=== PATIENT | male | born 1985 | race Caucasian/White ===

== ENCOUNTER 2017-02-04 15:15 | Emergency (ER) | payer OTHER ==
[~2017-02-04] VITALS: Ht 167.6 cm; Wt 60.0 kg
[2017-02-04 15:22] VITALS: BP 133/91; PULSE 70; RESP 18; TEMP 98.5; O2SAT 99
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
[2017-02-04] MEDS ORDERED: KETOROLAC TROMETHAMINE 30 MG/ML (IVP) VIAL IV PUSH ONE (15:45)
[2017-02-04] MEDS ORDERED: methylPREDNISolone SOD SUCC 125 MG/2 ML VIAL IVP ONE (15:45)
[2017-02-04] MEDS ORDERED: cefTRIAXone INJ 1,000 MG in SODIUM CHLORIDE 0.9% INJ 100 ML IV ONE (15:45)
[2017-02-04] MEDS ORDERED: SODIUM CHLORIDE 0.9% FLUSH 10 ML FLUSH IVF PRN (15:45)
[2017-02-04] MEDS ORDERED: TETANUS/DIPHTHERIA TOXOID ADULT 0.5 ML VIAL IM ONE (15:45)
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
[2017-02-04] MEDS ORDERED: SODIUM CHLOR 0.9% 1000 ML INJ 1,000 ML IV ONE ×2 (16:15→17:15)
[2017-02-04] MEDS ORDERED: BACI500O9 TOPICAL ×2 (16:47→17:13)
[2017-02-04] MEDS ORDERED: IBUP800T23 PO ×2 (16:47→17:13)
== END 2017-02-04 17:28 | disposition home or self-care (01) ==
LOC: NEPC 15:15
DX: T31.20 Burns involving 20-29% of body surface with 0% to 9% third degree burns (principal); T23.162A Burn of first degree of back of left hand, initial encounter; T23.161A Burn of first degree of back of right hand, initial encounter; T22.112A Burn of first degree of left forearm, initial encounter; T22.111A Burn of first degree of right forearm, initial encounter; T22.132A Burn of first degree of left upper arm, initial encounter; T22.131A Burn of first degree of right upper arm, initial encounter; T20.14XA Burn of first degree of nose (septum), initial encounter; T26.02XA Burn of left eyelid and periocular area, initial encounter; T26.01XA Burn of right eyelid and periocular area, initial encounter; T20.13XA Burn of first degree of chin, initial encounter; T20.17XA Burn of first degree of neck, initial encounter; Z23 Encounter for immunization; X03.0XXA Exposure to flames in controlled fire, not in building or structure, initial encounter; Y93.G2 Activity, grilling and smoking food; Y92.830 Public park as the place of occurrence of the external cause; Y99.0 Civilian activity done for income or pay; Z72.0 Tobacco use
CPT/HCPCS: 71010; 90471; 90714; 96374; 99283; J1885; J7030